=== PATIENT | male | born 1955 | race Caucasian/White ===

== ENCOUNTER 2016-12-23 05:51 | Day surgery (SDC) | payer OTHER ==
[2016-12-23] MEDS ORDERED: IV START KIT ONE (05:53)
[2016-12-23] MEDS ORDERED: LACTATED RINGERS 1,000 ML ONE (05:53)
[2016-12-23] MEDS ORDERED: MIDAZOLAM HCL 5 MG/5 ML VIAL ONE (06:48)
[2016-12-23] MEDS ORDERED: FENTANYL 250 MCG/5 ML AMP ONE (06:49)
[2016-12-23] MEDS ORDERED: MIDAZOLAM HCL 5 MG/5 ML VIAL IV PRN (07:03)
[2016-12-23] MEDS ORDERED: FENTANYL 250 MCG/5 ML AMP IV PRN (07:03)
[2016-12-23] MEDS ORDERED: LACTATED RINGERS 1,000 ML IV SCH (07:15)
== END 2016-12-23 08:09 | disposition home or self-care (01) ==
LOC: SDC 05:51
PROVIDERS: ATTEND Family Medicine
PROC: 0DJD8ZZ Inspection of Lower Intestinal Tract, Via Natural or Artificial Opening Endoscopic (ICD-10-PCS; principal; 2016-12-23)
DX: Z12.11 Encounter for screening for malignant neoplasm of colon (principal); K57.30 Diverticulosis of large intestine without perforation or abscess without bleeding; E78.5 Hyperlipidemia, unspecified
CPT/HCPCS: 45378; J3010; J2250; J7120